=== PATIENT | female | born 1985 | race Caucasian/White ===

== ENCOUNTER → 2018-01-11 07:59 | Outpatient (CLI) | payer MEDICAID, SELFPAY ==
[2018-01-15 11:43] LABS: HPV APTIMA, High Risk Negative (Negative)
== END ==
PROVIDERS: PCP Family Medicine; Visit Provider Obstetrics & Gynecology
DX: Z12.4 Encounter for screening for malignant neoplasm of cervix (principal)
CPT/HCPCS: 88175; G0145

== ENCOUNTER 2018-03-12 05:49 | Day surgery (SDC) | payer MEDICAID, SELFPAY ==
--- NOTE | 2018-03-12 | FALS_PTH ---
PATIENT: WALI PEDERSON LOC: [facility] U#:[id number] AGE/SX: 32/F ROOM: RE03/12/[address]: Dr. Migdalia Case MD : [id number] BED: DIS: 03/12/2018 SPEC #: [id number] RECD: 03/12/18 13:08 STATUS: MADALYN REBoris #: [id number] DENICE: 03/12/18 00:[address]: Migdalia Case DEPT: SURGICAL PATHOLOGY RECD BY: Lenard Brunson ENTERED: 03/12/18 13:09 SP TYPE: FALL TUBES OTHR DR: Dr. Fredrick Go MD Tissues: Fallopian tube Procedures: Surgery Specimen Level IV HEADER OPERATION: Laparoscopic salpingectomy PRE-OP DIAGNOSIS: Elective sterilization TISSUE SUBMITTED: Bilateral fallopian tubes MICROSCOPIC DIAGNOSIS Bilateral fallopian tubes, salpingectomy: Bilateral fallopian tubes including fimbrial ends with mild acute and chronic inflammation. SJ:moraima 03/15/18 MICROSCOPIC DESCRIPTION Slides are reviewed. GROSS DESCRIPTION Received is one container labeled with the patient's name and designated bilateral fallopian tubes. The specimen consists of bilateral fallopian tubes including fimbrial ends measuring 4 cm in length and 0.6 cm in diameter and 7 cm in length and 0.6 cm in diameter. The fallopian tubes are not identified as right or left. Sections reveal unremarkable cut surfaces. Chiropractic Doctor sections are submitted in two cassettes with each cassette containing one fallopian tube. / KUMAR:moraima 03/12/18 TC:2 CPT: 17400 x2
[2018-03-12 06:30] LABS: Internal QC Validated? YES +Cl - CLEAR BKGD; Pregnancy, Urine Negative Negative
[2018-03-12 06:40] VITALS: BP 112/72; PULSE 83; RESP 18; TEMP 36.5; O2SAT 99; BMI 51.0
[2018-03-12 06:47] LABS: Hematocrit 38.1 % (37-47); Hemoglobin 12.4 g/dl (12.0-15.0); Mean Corp Hgb Conc 32.5 g/gl (32-36); Mean Platelet Vol. 10.5 fl (6.2-12.0); Platelet Count 323 K/mm3 (150-450); RBC Distribution Width CV 13.1 % (11.6-14.6); RBC Distribution Width SD 40.1 fl (35.1-43.9); Red Blood Count 4.43 M/mm3 (4.2-5.4); White Blood Count 8.8 K/mm3 (4.4-11.0)
[2018-03-12 06:52] LABS: Scan Indicated on CBC? Y/N NO
--- NOTE | 2018-03-12 07:48 | PCM.OPRPT ---
Problem List (1) Sterilization Status: Acute Report of Operation Date of Procedure: 03/12/18 Pre-Operative Diagnosis: sterilization Post-Operative Diagnosis: same Surgery/Procedure Performed:: laparoscopic bilateral salpingectomy Description of Surgical Findings:: normal uterus tubes ovaries, right pelvic adhesions Type of Anesthesia:: General Special Medications: none Specimen's removed: bilateral tubes Drains: none Estimated Blood Loss (mL): minimal Fluids Replaced: crystalloid Description of Procedure: Patient was taken in the operating room and was placed under general anesthesia was prepped and draped in normal sterile fashion in the dorsal lithotomy position. Bladder was drained of clear urine and SCDs were on preoperatively. Uterus was sounded and a uterine manipulator was placed after dilating. Attention was then paid to the abdominal portion of the procedure and the umbilicus was elevated with towel clamps and injected with Marcaine and after a 5 mm incision was made and the Veress needle was entered into the abdomen confirmed to be intra-abdominal with a low opening pressure of less than 5 mmHg. Abdomen was insufflated with CO2 gas and a 5 mm optical trocar was placed under direct visualization. A left lower quadrant 5 mm port and a 5 mm port suprapubically replaced under direct visualization. Uterus was well visualized and bilateral fallopian tubes identified and bilateral tubes were elevated and transecting across the mesosalpinx and the attachment to the uterine corpus bilaterally the tubes were removed without complication. Excellent hemostasis was noted. Fallopian tubes were removed through the lower port sites without complication. Liver and upper abdomen were visualized notably within normal limits and no other gross abnormalities were seen in the abdomen. All instruments removed from the abdomen after gas was desufflated. Port sites were closed with 3-0 Monocryl Steri's and op sites were applied. All instruments removed from the vagina and patient was awoken and taken recovery in stable condition. Grafts/Implants Used: none - Complications none
--- NOTE | 2018-03-12 07:51 | DCINST_ITS ---
Discharge Diet: No Restrictions - Increase fluid intake for the next 48 hours. Discharge Activity: Return to Normal Activity, May Drive - when you are no longer taking narcotic pain medications., May Shower, May Take a Tub Bath - in 7 days Additional Activity Instructions:: Ambulate often the next week after surgery. Nothing in the vagina for 5 days. Call your doctor if your incision/area has: Continuous Slow Oozing, Sudden Increased Bleeding, Increased Pain/ Swelling, Increased Redness, Foul Smelling Discharge Call your doctor if you observe: Fever of 101 or Higher Allergies/Adverse Reactions: Allergies No Known Allergies Allergy (Verified 03/05/18 15:01) Medications to take at Discharge bupropion HCl XL 300 mg 24 hr tablet, extended release 300 mg PO QAM 01/11/18 Orders to be completed after discharge: ,Urine Time Frame: 03/12/18, Facility: [facility], Location: [facility] Primary Care Physician: Fredrick Go MD [Primary Care Provider] - Test Results: Test results from this visit will be discussed in further detail at your follow- up appointment, if applicable. Please Follow Up With: Migdalia Case MD - [phone]
[2018-03-12] MEDS: Bupivacaine Mpf 0.5% 30 ML VIAL (08:33)
[2018-03-12 08:50] VITALS: BP 112/72; BP 130/85; PULSE 79; RESP 16; TEMP 35.5; O2SAT 100
[2018-03-12 09:00] VITALS: BP 112/72; BP 127/80; PULSE 70; RESP 16; O2SAT 99
[2018-03-12 09:15] VITALS: BP 112/72; BP 119/81; PULSE 68; RESP 16; O2SAT 98
[2018-03-12 09:30] VITALS: BP 112/72; PULSE 67; RESP 16; TEMP 36.4; O2SAT 100
[2018-03-12 11:24] VITALS: BP 112/72; BP 120/55; PULSE 80; RESP 16; TEMP 36.6; O2SAT 99
== END 2018-03-12 11:26 | disposition home or self-care (01) ==
LOC: SDC 05:49 → AC 05:51
PROVIDERS: Anesthesiology; Family Provider Family Medicine; PCP Family Medicine; Referring Provider Obstetrics & Gynecology; Visit Provider Obstetrics & Gynecology
PROC: (CPT 58661; principal; 2018-03-12 07:15)
DX: Z30.2 Encounter for sterilization (principal); F41.9 Anxiety disorder, unspecified; F17.210 Nicotine dependence, cigarettes, uncomplicated; Z79.899 Other long term (current) drug therapy
CPT/HCPCS: 00840; 58661; 36415; 81025; 85027; 86850; 86900; 88302; 88305; J7120; J2405

== ENCOUNTER → 2019-05-25 08:14 | Outpatient (CLI) | payer BC, SELFPAY ==
[2019-05-25 07:57] VITALS: BMI 49.6
--- NOTE | 2019-05-25 08:14 | RAD_ITS ---
STUDY: X-RAY - LEFT KNEE REASON FOR EXAM: Pain, injury. TECHNIQUE: 4 view(s) of the knee. COMPARISON: Radiographs 07/07/2009. FINDINGS: Normal visualized distal femur. Normal visualized proximal tibia and fibula. Normal proximal tibiofibular articulation. Normal medial femorotibial compartment. Normal lateral femorotibial compartment. There is a small marginal osteophyte of the lateral patellar facet without joint space narrowing of the patellofemoral articulation. The soft tissue structures are unremarkable. RAD/Knee 4 or More Views IMPRESSION: Small patellar osteophyte. Otherwise, unremarkable x-ray examination of the left knee. Electronically Signed: Blaise Loco MD at 10:20 EST Tel , Service support ,
== END ==
LOC: HPRAD 08:14
PROVIDERS: Family Provider Family Medicine; PCP Family Medicine; Referring Provider Orthopaedic Surgery; Visit Provider Orthopaedic Surgery
DX: M25.562 Pain in left knee (principal)
CPT/HCPCS: 73564

== ENCOUNTER → 2019-05-28 07:05 | Outpatient (CLI) | payer BC, SELFPAY ==
[2019-05-25 07:57] VITALS: BMI 49.6
--- NOTE | 2019-05-28 07:06 | MRI_ITS ---
STUDY: MRI LEFT KNEE REASON FOR EXAM: Female, 34 years old. Pain. Recent fall. TECHNIQUE: Standardized fat and water weighted pulse sequences were obtained in all 3 orthogonal planes. COMPARISON: None. FINDINGS: Normal medial meniscus. Normal hyaline cartilage of the medial femorotibial compartment. Normal medial femoral condyle and tibial plateau. There is a partial sprain of the MCL with interstitial and periligamentous edema. Normal distal semimembranosus, gracilis and semitendinosus tendons. Normal lateral meniscus. Normal hyaline cartilage of the lateral femorotibial compartment. There is reactive marrow edema of the posterior lateral tibial plateau. Normal proximal tibiofibular articulation. Normal lateral collateral (fibular) ligament. Normal popliteus tendon. Normal biceps femoris tendon. Rupture with discontinuity and tear of the anterior cruciate ligament (ACL), series 4 image and . Normal posterior cruciate ligament (PCL). There is arthrosis of the patellofemoral articulation. There is diffuse, greater than 50% thickness articular cartilage loss of the patellofemoral compartment. Normal medial and lateral patellar retinaculum. Normal quadriceps tendon. Normal patellar tendon. Normal Hoffa''s fat pad. There is a moderate volume joint effusion. The soft tissues are unremarkable. The otherwise visualized osseous structures are unremarkable. MRI/Lower Ext Joint Only (Routine) IMPRESSION: Anterior cruciate ligament rupture. Medial collateral ligament sprain. No meniscal tear seen. Bone bruise of the lateral tibial plateau. Joint effusion. Electronically Signed: Ariel Hayes MD at 9:12 EST , Service support ,
== END ==
PROVIDERS: Family Provider Family Medicine; PCP Family Medicine; Referring Provider Orthopaedic Surgery; Visit Provider Orthopaedic Surgery
DX: M25.562 Pain in left knee (principal); S89.92XA Unspecified injury of left lower leg, initial encounter; X58.XXXA Exposure to other specified factors, initial encounter; Y93.9 Activity, unspecified; Y92.9 Unspecified place or not applicable; Y99.9 Unspecified external cause status
CPT/HCPCS: 73721

== ENCOUNTER → 2023-09-15 | Outpatient (CLI) | payer OTHER, SELFPAY ==
[2023-09-15 09:58] LABS: Absolute Lymphocyte Count 2.63 X10^3/uL (0.83-4.51); Absolute Neutrophil Count 6.6 X10^3/uL (2.0-7.7); Basophil# 0.05 X10^3/uL; Basophil% 0.5 % (0-1); Eosinophil# 0.29 X10^3/uL; Eosinophils% 2.8 % (0-5); Hematocrit 39.8 % (37-47); Hemoglobin 12.6 g/dL (12.0-15.0); Lymphocyte # 2.63 X10^3/ul (0.83-4.51); Lymphocyte % 25.7 % (19-41); Mean Corp Hgb Conc 31.7 g/dL (32-36); Mean Corpuscular Hgb 27.5 pg (27.0-32.0); Mean Corpuscular Volume 86.9 fL (81-99); Mean Platelet Vol. 10.3 fl (6.2-12.0); Monocyte# 0.67 X10^3/uL; Monocyte% 6.5 % (0-10); NRBC Flagged by Analyzer 0 % (0-5); Neutrophil # 6.56 X10^3/uL (2.7-7.7); Platelet Count 389 K/mm3 (150-450); RBC Distribution Width CV 13.1 % (11.6-14.6); RBC Distribution Width SD 41.1 fl (35.1-43.9); Red Blood Count 4.58 M/mm3 (4.2-5.4); White Blood Count 10.3 K/mm3 (4.4-11.0)
[2023-09-15 10:22] LABS: Vitamin D,25 Hydroxy 28.1 ng/mL
[2023-09-15 10:37] LABS: ALB/GLOB Ratio 0.9 RATIO (0.9-2.4); AST(SGOT) 12 U/L (15-37); Alanine Aminotransfer ALT/SGPT 24 U/L (13-56); Albumin, Serum 3.4 g/dL (3.2-5.0); Alkaline Phosphatase 66 U/L (45-117); Anion Gap 3 (5-15); BUN 13 mg/dL (7-18); BUN/Creat Ratio 18.4 RATIO (10-20); Calcium,Total 9.1 mg/dL (8.5-10.1); Chloride 107 mmol/L (98-107); Cholesterol 175 mg/dL (200); Creatinine, Serum 0.71 mg/dL (0.55-1.02); EST Glomerular Filtration Rate 100 mL/min (>60); Est Glom Filt Rate - Afr Amer 120 mL/min (>60); Globulin 3.8 g/dL (2.2-4.2); Glucose 100 mg/dL (74-106); High Density Lipoprotein 43 mg/dL; Potassium 4.2 mmol/L (3.5-5.1); Protein, Total 7.2 g/dL (6.4-8.2); Sodium Level 138 mmol/L (136-145); Thyroid Stim Hormone (TSH) 2.15 uIU/mL (0.358-3.74); Triglycerides 84 mg/dL; Very Low Density Lipoprotein 17 mg/dL (5-40)
[2023-09-15 11:33] LABS: Hemoglobin A1c 4.8 % (3.8-5.6)
== END | disposition home or self-care (01) ==
LOC: MFPLAB 08:11
PROVIDERS: PCP Family Medicine; Visit Provider Family Medicine
DX: Z13.1 Encounter for screening for diabetes mellitus (principal); E66.01 Morbid (severe) obesity due to excess calories; Z13.220 Encounter for screening for lipoid disorders
CPT/HCPCS: 36415; 80053; 80061; 82306; 83036; 84443; 85025